=== PATIENT | male | born 1970 | race Caucasian/White ===

== ENCOUNTER 2024-04-27 17:35 | Emergency (ER) | payer MEDICAID ==
[~2024-04-27] VITALS: Ht 180.3 cm; Wt 127.0 kg
[2024-04-27] MEDS: oxyCODONE/APAP (5/325 MG) 1 UDTAB TABLET PO ONE (18:00)
[2024-04-27] MEDS ORDERED: oxyCODONE/APAP (5/325 MG) 1 UDTAB TABLET ONE (18:03)
[2024-04-27] MEDS: ACETAMINOPHEN ES 500 MG TABLET PO ONE (19:00)
[2024-04-27] MEDS ORDERED: ACETAMINOPHEN ES 500 MG TABLET ONE (19:04)
[2024-04-27 20:04] LABS: BASOPHILS % (AUTO) 0.7 % (0.0-2.0); EOSINOPHILS # (AUTO) 0.2 K/uL (0.0-0.7); EOSINOPHILS % (AUTO) 4.3 % (0.0-6.0); HEMATOCRIT 40 % (39-51); HEMOGLOBIN 13.4 g/dL (13.5-17.5); LYMPHOCYTES # (AUTO) 1.3 K/uL (0.8-4.8); LYMPHOCYTES % (AUTO) 28.5 % (20.0-44.0); MEAN CORPUSCULAR HEMOGLOBIN 32 PG (26.0-33.0); MEAN CORPUSCULAR HGB CONC 34 g/dl (31.0-36.0); MEAN CORPUSCULAR VOLUME 93 fL (80-96); MONOCYTES # (AUTO) 0.4 K/uL (0.1-1.30); MONOCYTES % (AUTO) 8.8 % (2.0-12.0); NEUTROPHILS # (AUTO) 2.7 K/uL (1.8-8.9); NEUTROPHILS % (AUTO) 57.7 % (43.0-81.0); PLATELET COUNT (AUTO) 180 K/uL (150-450); RED BLOOD CELL COUNT(AUTO) 4.24 MIL/uL (4.5-6.0); RED CELL DISTRIBUTION WIDTH 14.2 % (11.5-15.0); WHITE BLOOD COUNT (AUTO) 4.7 K/uL (4.3-11.0)
[2024-04-27 20:13] LABS: CALCIUM, SERUM 8.6 mg/dL (8.5-10.1); CREATININE 1.3 mg/dL (0.6-1.3)
[2024-04-27] MEDS ORDERED: IOHEXOL-350 100 ML VIAL IV ONE (20:14)
[2024-04-27] MEDS ORDERED: IV NS 0.9% 250 ML IV ONE (20:14)
[2024-04-27] MEDS ORDERED: IBUP-1957 PO (21:10)
[2024-04-27] MEDS ORDERED: HYDR-4303 PO (21:10)
[2024-04-27] MEDS ORDERED: ACET-2605 PO (21:10)
[2024-04-27 21:29] VITALS: BP 120/79; TEMP 97.9; O2SAT 99
== END 2024-04-27 21:30 | disposition home or self-care (01) ==
LOC: ER 17:42
DX: S20.211A Contusion of right front wall of thorax, initial encounter (principal); S50.11XA Contusion of right forearm, initial encounter; Z86.711 Personal history of pulmonary embolism; Z86.718 Personal history of other venous thrombosis and embolism; V00.831A Fall from motorized mobility scooter, initial encounter; Y93.89 Activity, other specified; Y92.488 Other paved roadways as the place of occurrence of the external cause; Y99.8 Other external cause status
CPT/HCPCS: 99285; 71275; 73090; 71100; 85025; 80048; 36415; J7050; Q9967

== ENCOUNTER 2024-12-07 11:31 | Inpatient (IN) | payer MEDICAID, OTHER ==
[~2024-12-07] VITALS: Ht 182.9 cm; Wt 121.6 kg
[~2024-12-07 11:31] MED LIST: ACET-2605 PO; HYDR-4303 PO; IBUP-1957 PO
[2024-12-07 13:13] LABS: BASOPHILS % (AUTO) 0.7 % (0.0-2.0); EOSINOPHILS # (AUTO) 0.1 K/uL (0.0-0.7); EOSINOPHILS % (AUTO) 1.4 % (0.0-6.0); HEMATOCRIT 41 % (39-51); HEMOGLOBIN 13.9 g/dL (13.5-17.5); LYMPHOCYTES # (AUTO) 0.8 K/uL (0.8-4.8); LYMPHOCYTES % (AUTO) 16.8 % (20.0-44.0); MEAN CORPUSCULAR HEMOGLOBIN 32 PG (26.0-33.0); MEAN CORPUSCULAR HGB CONC 34 g/dl (31.0-36.0); MEAN CORPUSCULAR VOLUME 94 fL (80-96); MONOCYTES # (AUTO) 0.4 K/uL (0.1-1.30); MONOCYTES % (AUTO) 7.9 % (2.0-12.0); NEUTROPHILS # (AUTO) 3.3 K/uL (1.8-8.9); NEUTROPHILS % (AUTO) 73.2 % (43.0-81.0); PLATELET COUNT (AUTO) 172 K/uL (150-450); RED BLOOD CELL COUNT(AUTO) 4.33 MIL/uL (4.5-6.0); RED CELL DISTRIBUTION WIDTH 13.4 % (11.5-15.0); WHITE BLOOD COUNT (AUTO) 4.5 K/uL (4.3-11.0)
[2024-12-07 13:30] LABS: POTASSIUM 4.1 mmol/L (3.5-5.1)
[2024-12-07 13:46] LABS: INR 1.08 (0.91-1.10); PARTIAL THROMBOPLASTIN TIME 30.8 SEC (24.3-34.3); PROTHROMBIN TIME 11.4 SECS (9.2-11.1)
[2024-12-07] MEDS ORDERED: Z GUARD REMEDY 4 OZ OINT TP PRN (14:00)
[2024-12-07] MEDS ORDERED: ZOLPIDEM TARTRATE 5 MG TABLET PO PRN (14:00)
[2024-12-07] MEDS ORDERED: MAGNESIUM HYDROXIDE 30 ML UDC PO PRN (14:00)
[2024-12-07] MEDS ORDERED: ONDANSETRON HCL/PF 4 MG/2 ML VIAL IVP PRN (14:00)
[2024-12-07] MEDS ORDERED: RIVA10TA PO (14:05)
[2024-12-07] MEDS ORDERED: ACET-73 PO (14:05)
[2024-12-07] MEDS ORDERED: IBUP-1957 PO (14:05)
[2024-12-07] MEDS ORDERED: GABA300C PO (14:05)
[2024-12-07] MEDS: ENOXAPARIN SODIUM 120 MG/0.8 ML DISP.SYRIN SQ SCH (14:23)
[2024-12-07 16:00] VITALS: BP 128/75; TEMP 98; O2SAT 98
[2024-12-07] MEDS: ACETAMINOPHEN 325 MG TABLET PO PRN (17:49)
[2024-12-07] MEDS: MAG HYDROX/AL HYDROX/SIMETH 30 ML UDC PO PRN (21:27)
[2024-12-08] VITALS: BP 142/76; TEMP 98; O2SAT 95
[2024-12-08] MEDS: ENOXAPARIN SODIUM 60 MG/0.6 ML DISP.SYRIN SQ ONE (02:11)
[2024-12-08] MEDS: ENOXAPARIN SODIUM 120 MG/0.8 ML DISP.SYRIN SQ SCH (02:16)
[2024-12-08 07:55] LABS: BASOPHILS % (AUTO) 0.6 % (0.0-2.0); EOSINOPHILS # (AUTO) 0.2 K/uL (0.0-0.7); EOSINOPHILS % (AUTO) 4.3 % (0.0-6.0); HEMATOCRIT 42 % (39-51); HEMOGLOBIN 14.2 g/dL (13.5-17.5); LYMPHOCYTES # (AUTO) 1.3 K/uL (0.8-4.8); LYMPHOCYTES % (AUTO) 34.9 % (20.0-44.0); MEAN CORPUSCULAR HEMOGLOBIN 32 PG (26.0-33.0); MEAN CORPUSCULAR HGB CONC 34 g/dl (31.0-36.0); MEAN CORPUSCULAR VOLUME 94 fL (80-96); MONOCYTES # (AUTO) 0.4 K/uL (0.1-1.30); MONOCYTES % (AUTO) 10.8 % (2.0-12.0); NEUTROPHILS # (AUTO) 1.8 K/uL (1.8-8.9); NEUTROPHILS % (AUTO) 49.4 % (43.0-81.0); PLATELET COUNT (AUTO) 152 K/uL (150-450); RED BLOOD CELL COUNT(AUTO) 4.49 MIL/uL (4.5-6.0); RED CELL DISTRIBUTION WIDTH 13.4 % (11.5-15.0); WHITE BLOOD COUNT (AUTO) 3.6 K/uL (4.3-11.0)
[2024-12-08 08:00] VITALS: BP 130/74; TEMP 98; O2SAT 95
[2024-12-08 08:14] LABS: CALCIUM, SERUM 8.2 mg/dL (8.5-10.1); CREATININE 0.9 mg/dL (0.6-1.3); MAGNESIUM 2.3 mg/dL (1.8-2.4); PHOSPHORUS 2.6 mg/dL (2.5-4.9)
[2024-12-08 16:02] VITALS: BP 118/75; TEMP 98.2; O2SAT 98
[2024-12-08] MEDS ORDERED: ACETAMINOPHEN ES 500 MG TABLET PO PRN (16:30)
[2024-12-08 20:00] VITALS: BP 128/77; TEMP 98.6; O2SAT 97
[2024-12-09 04:00] VITALS: BP 123/74; TEMP 97.6
[2024-12-09 08:00] VITALS: BP 136/92; TEMP 98.1; O2SAT 97
[2024-12-09 08:12] LABS: BASOPHILS % (AUTO) 0.6 % (0.0-2.0); EOSINOPHILS # (AUTO) 0.1 K/uL (0.0-0.7); EOSINOPHILS % (AUTO) 3.2 % (0.0-6.0); HEMATOCRIT 44 % (39-51); HEMOGLOBIN 15.1 g/dL (13.5-17.5); LYMPHOCYTES # (AUTO) 1.4 K/uL (0.8-4.8); LYMPHOCYTES % (AUTO) 37.4 % (20.0-44.0); MEAN CORPUSCULAR HEMOGLOBIN 32 PG (26.0-33.0); MEAN CORPUSCULAR HGB CONC 34 g/dl (31.0-36.0); MEAN CORPUSCULAR VOLUME 93 fL (80-96); MONOCYTES # (AUTO) 0.4 K/uL (0.1-1.30); MONOCYTES % (AUTO) 9.5 % (2.0-12.0); NEUTROPHILS # (AUTO) 1.8 K/uL (1.8-8.9); NEUTROPHILS % (AUTO) 49.3 % (43.0-81.0); PLATELET COUNT (AUTO) 162 K/uL (150-450); RED BLOOD CELL COUNT(AUTO) 4.76 MIL/uL (4.5-6.0); RED CELL DISTRIBUTION WIDTH 13.2 % (11.5-15.0); WHITE BLOOD COUNT (AUTO) 3.7 K/uL (4.3-11.0)
[2024-12-09] MEDS: GABAPENTIN 300 MG CAPSULE PO SCH (08:25)
[2024-12-09 08:51] LABS: CREATININE 0.8 mg/dL (0.6-1.3); POTASSIUM 4.1 mmol/L (3.5-5.1)
[2024-12-09 16:00] VITALS: BP 128/75; TEMP 98.4; O2SAT 98
[2024-12-09 18:29] LABS: THYROID STIMULATING HORMONE 2.62 uIU/mL (0.358-3.74)
[2024-12-09 20:00] VITALS: BP 126/87; TEMP 98.4; O2SAT 98
[2024-12-10 04:00] VITALS: BP 114/69; TEMP 98.1; O2SAT 99
[2024-12-10 07:56] LABS: BASOPHILS % (AUTO) 0.8 % (0.0-2.0); EOSINOPHILS # (AUTO) 0.1 K/uL (0.0-0.7); EOSINOPHILS % (AUTO) 2.2 % (0.0-6.0); HEMATOCRIT 50 % (39-51); HEMOGLOBIN 16.2 g/dL (13.5-17.5); LYMPHOCYTES # (AUTO) 1.7 K/uL (0.8-4.8); LYMPHOCYTES % (AUTO) 38.5 % (20.0-44.0); MEAN CORPUSCULAR HEMOGLOBIN 32 PG (26.0-33.0); MEAN CORPUSCULAR HGB CONC 33 g/dl (31.0-36.0); MEAN CORPUSCULAR VOLUME 97 fL (80-96); MONOCYTES # (AUTO) 0.4 K/uL (0.1-1.30); MONOCYTES % (AUTO) 9.9 % (2.0-12.0); NEUTROPHILS # (AUTO) 2.1 K/uL (1.8-8.9); NEUTROPHILS % (AUTO) 48.6 % (43.0-81.0); PLATELET COUNT (AUTO) 153 K/uL (150-450); RED BLOOD CELL COUNT(AUTO) 5.13 MIL/uL (4.5-6.0); RED CELL DISTRIBUTION WIDTH 13.5 % (11.5-15.0); WHITE BLOOD COUNT (AUTO) 4.3 K/uL (4.3-11.0)
[2024-12-10 08:00] VITALS: BP 125/80; TEMP 98.4; O2SAT 97
[2024-12-10] MEDS ORDERED: ENOX120D5 SQ (11:18)
[2024-12-10] MEDS ORDERED: DABI150C PO (11:18)
[2024-12-11 03:11] LABS: HEPATITIS B SURFACE AB (QUAL) Reactive (.)
[2024-12-11 08:07] LABS: *ANA ANTI-CENTROMERE B AB <0.2 AI (0.0-0.9); *ANA ANTI-DNA(DS) AB, QN 1 IU/mL (0-9); *ANA ANTI-JO-1 <0.2 AI (0.0-0.9); *ANA ANTICHROMATIN ANTIBODY <0.2 AI (0.0-0.9); *ANA RNP ANTIBODIES <0.2 AI (0.0-0.9); *ANA SJOGREN'S ANTI-SS-A <0.2 AI (0.0-0.9); *ANA SJOGREN'S ANTI-SS-B <0.2 AI (0.0-0.9); *ANAANTI-SCLERODERMA-70 AB <0.2 AI (0.0-0.9); *ANASMITH AB <0.2 AI (0.0-0.9); FOLIC ACID 13.9 ng/mL (>3.0); IMMUNOGLOBULIN A, SERUM 262 mg/dL (90-386); IMMUNOGLOBULIN G, SERUM 1189 mg/dL (603-1613); IMMUNOGLOBULIN M, SERUM 51 mg/dL (20-172)
[2024-12-11 18:10] LABS: FREE KAPPA LT CHAINS SERUM 21.1 mg/L (3.3-19.4); FREE LAMBDA LT CHAIN SERUM 14.8 mg/L (5.7-26.3); KAPPA/LAMBDA RATIO SERUM 1.43 (0.26-1.65)
[2024-12-12 19:06] LABS: *ANTITHROMBIN III AG 71 % (72-124); *DILUTE PROTHROMBIN TIME (dPT) 44.4 sec (0.0-47.6); *THROMBIN TIME 20.7 sec (0.0-23.0); *dPT CONFIRM RATIO 1.08 Ratio (0.00-1.34); *dRVVT 39.5 sec (0.0-47.0); ANTITHROMBIN III ACTIVITY 97 % (75-135); PROTEIN C ACTIVITY 94 % (73-180)
== END 2024-12-10 15:05 | disposition home or self-care (01) | DRG 197 ==
LOC: ER 11:34 → TELE1 15:58 → MEDSG1 16:08
PROVIDERS: ADMIT Internal Medicine; ATTEND Internal Medicine
DX: I82.432 Acute embolism and thrombosis of left popliteal vein (principal); E66.9 Obesity, unspecified; Z79.01 Long term (current) use of anticoagulants; Z86.711 Personal history of pulmonary embolism; Z86.718 Personal history of other venous thrombosis and embolism; Z68.36 Body mass index [BMI] 36.0-36.9, adult; V89.2XXS Person injured in unspecified motor-vehicle accident, traffic, sequela
CPT/HCPCS: 36415; 71045-TC; 80048-TC; 82607-TC; 82784; 83735-TC; 84100-TC; 84155; 84165; 84443-TC; 85025-TC; 85300; 85301; 85303; 85613; 85670; 85705; 85730-TC; 85732; 86225; 86235; 86334; 86706; 86803; 87340; 93971-TC; 97112-TC; 97116-TC; 97530-TC; A4223; G0378; J1650; J7030

== ENCOUNTER 2025-07-22 16:25 | Emergency (ER) | payer MEDICAID, OTHER ==
[~2025-07-22] VITALS: Ht 180.3 cm; Wt 113.4 kg
[~2025-07-22 16:25] MED LIST changes: -ACET-2605 PO; +ACET-73 PO; +DABI150C PO; +ENOX120D5 SQ; +GABA300C PO; -HYDR-4303 PO
[2025-07-22] MEDS: IV NS 0.9% 1,000 ML BAG IV ONE (17:20)
[2025-07-22 17:32] LABS: PLATELET COUNT (AUTO) 163 K/uL (150-450); RED BLOOD CELL COUNT(AUTO) 4.56 MIL/uL (4.5-6.0); RED CELL DISTRIBUTION WIDTH 13.2 % (11.5-15.0); WHITE BLOOD COUNT (AUTO) 4.6 K/uL (4.3-11.0)
[2025-07-22] MEDS ORDERED: IOHEXOL-350 100 ML VIAL IV ONE (17:36)
[2025-07-22] MEDS ORDERED: IV NS 0.9% 250 ML IV ONE (17:36)
[2025-07-22 17:40] LABS: CALCIUM, SERUM 8.6 mg/dL (8.5-10.1); CREATININE 0.9 mg/dL (0.6-1.3); SODIUM SERUM 142 mmol/L (136-145); UREA NITROGEN, BLOOD 14 mg/dL (7-18)
[2025-07-22 17:58] LABS: NT-PRO BNP 98 pg/mL (0-125)
[2025-07-22 22:21] VITALS: BP 120/75; TEMP 98; O2SAT 99
== END 2025-07-22 22:24 | disposition home or self-care (01) ==
LOC: ER 16:39
DX: R07.89 Other chest pain (principal); R06.02 Shortness of breath; I10 Essential (primary) hypertension; Z79.01 Long term (current) use of anticoagulants; Z79.899 Other long term (current) drug therapy; Z86.711 Personal history of pulmonary embolism; Z86.718 Personal history of other venous thrombosis and embolism
CPT/HCPCS: 99285; 96360; 71275; 71045; 93005 ×3; 85025; 80048; 36415; 84484 ×2; 83880; J7030; J7050; Q9967